=== PATIENT | female | born 1990 ===

== ENCOUNTER 2017-10-12 22:43 | Emergency (ER) | payer OTHER ==
[2017-10-12 22:52] VITALS: BMI 21.5
[2017-10-12 23:06] VITALS: O2SAT 98
[2017-10-13] LABS: BASO # 0.02 K/mm3 (0.0-2.0); BASO % 0.3 % (0.0-3.0); EOS # 0.1 (0.0-0.7); EOS % 1.1 % (1.5-5.0); GRAN # 3.99 (1.4-6.5); LYMPH # 2.8 (1.2-3.4); LYMPH % 38.1 % (22.0-35.0); MEAN CELL VOLUME 88.2 fl (80.0-105.0); MEAN CORPUSCULAR HGB CONC 32.9 g/dl (31.0-37.0); MEAN PLATELET VOLUME 9.7 fl (7.0-11.0); MONO # 0.5 (0.1-0.6); MONO % 6.5 % (1.0-6.0); RBC 4.14 10^6/uL (3.5-6.1); RED CELL DISTRIBUTION WIDTH 14.3 % (11.5-14.5); WHITE BLOOD COUNT 7.4 10^3/ul (4.5-11.0)
--- NOTE | 2017-10-13 | ED PDOC ---
Arrival/HPI <Emil Abebe - Last Filed: 10/13/17 00:30> - General Historian: Patient <Smiley Duong PA-C - Last Filed: 10/13/17 16:29> - General Chief Complaint: Upper Extremity Problem/Injury Time Seen by Provider: 10/12/17 23:29 - History of Present Illness Narrative History of Present Illness (Text): 10/12/17 23:56 27 yo F with no PMH, presents with gradual onset of constant non-radiating R upper chest pain. States that the pain was initially in the R posterior neck and then spread to the R upper chest. Patient does admit to recent travel to [place] this month. Patient denies any trauma or injury shortness of breath, fever , cough, nausea, vomiting, leg pain or swelling, OCP use, paresthesia, weakness , headache, dizziness. PMD Bruno (Smiley Duong PA-C) Past Medical History - Provider Review Nursing Documentation Reviewed: Yes - Travel History Have you recently traveled outside [place] w/in the past 3 mons?: Yes If Yes, travel location?: [place] - Past History Past History: No Previous - Cardiac Hx Cardiac Disorders: No - Pulmonary Hx Respiratory Disorders: No - Neurological Hx Neurological Disorder: No - HEENT Hx HEENT Disorder: No - Renal Hx Renal Disorder: No - Endocrine/Metabolic Hx Hypothyroidism: Yes - Hematological/Oncological Hx Blood Disorders: No - Integumentary Hx Dermatological Disorder: No - Musculoskeletal/Rheumatological Hx Musculoskeletal Disorders: No - Gastrointestinal Hx Gastrointestinal Disorders: No - Genitourinary/Gynecological Hx Genitourinary Disorders: No - Psychiatric Hx Psychophysiologic Disorder: No Hx Substance Use: No - Surgical History Hx Thyroidectomy: Yes (partial [id number]) Other/Comment: breast implants 2015 - Anesthesia Hx Anesthesia: Yes Hx Anesthesia Reactions: No Hx Malignant Hyperthermia: No <Smiley Duong PA-C - Last Filed: 10/13/17 16:29> Family/Social History - Physician Review Nursing Documentation Reviewed: Yes Family/Social History: Diabetes, CAD/ID Smoking Status: Never Smoked Hx Alcohol Use: No Hx Substance Use: No <Smiley Duong PA-C - Last Filed: 10/13/17 16:29> Allergies/Home Meds <Mis,Emil - Last Filed: 10/13/17 00:30> <Smiley Duong PA-C - Last Filed: 10/13/17 16:29> Allergies/Adverse Reactions: Allergies No Known Allergies Allergy (Verified 10/12/17 22:52) Review of Systems - Review of Systems Constitutional: absent: Fatigue, Weight Change, Fevers Respiratory: absent: SOB, Cough, Sputum Cardiovascular: Chest Pain. absent: Palpitations, Edema Gastrointestinal: absent: Abdominal Pain, Diarrhea, Vomiting Genitourinary Female: absent: Dysuria, Frequency, Hematuria Musculoskeletal: absent: Arthralgias, Back Pain, Neck Pain Skin: absent: Rash, Pruritis, Skin Lesions <Smiley Duong PA-C - Last Filed: 10/13/17 16:29> Physical Exam <Emil Abebe - Last Filed: 10/13/17 00:30> <Smiley Duong PA-C - Last Filed: 10/13/17 16:29> - Physical Exam Narrative Physical Exam (Text): 10/12/17 23:59 GENERAL APPEARANCE: Patient is awake, alert, oriented x 3, in no acute distress. SKIN: Warm, dry; (-) cyanosis. EYES: (-) conjunctival pallor. ENMT: Mucous membranes moist. NECK: (-) tenderness, (-) stiffness, (-) lymphadenopathy, (-) JVD. CHEST AND RESPIRATORY: (-) rash, (-) chest wall tenderness. Lungs: (-) rales , (-) rhonchi, (-) wheezes, (-) rub; breath sounds equal bilaterally. HEART AND CARDIOVASCULAR: (-) irregularity; (-) murmur, (-) gallop, (-) rub. ABDOMEN AND GI: Soft; (-) distention, (-) tenderness, (-) palpable pulsatile mass. EXTREMITIES: (-) deformity; (-) edema, (-) calf tenderness. (+) distal pulses. NEURO AND PSYCH: Mental status as above. Cranial nerves grossly intact; strength symmetric. (Smiley Duong PA-C) Vital Signs Temp Pulse Resp BP Pulse Ox 10/13/17 02:21 98.0 F 84 17 134/84 98 10/13/17 01:49 84 17 134/82 98 10/12/17 22:59 98.2 F 82 16 146/93 H 98 Medical Decision Making <Emil Abebe - Last Filed: 10/13/17 00:30> <Smiley Duong PA-C - Last Filed: 10/13/17 16:29> ED Course and Treatment: 10/12/17 23:59 27 yo F with no PMH, presents with sudden onset of constant non-radiating R upper chest pain. Plan: -- Labs -- IV -- Uhcg -- EKG -- CXR -- Reassess and disposition EKG : NSR at 70 bpm, (-) acute ST changes, as read by BRIAN. CXR : NAD, as read by BRIAN Labs reviewed and are wnl. D-dimer (-). Results d/w the patient. Given toradol 30 mg IV for pain. On re-evaluation, patient is resting comfortably in no acute respiratory or painful distress. Speaking in full sentences. Reports no SOB, CP, headache, dizziness at this time. Patient feels comfortable going home. Advised to f/u w/ pmd in 2 days without fail, return to the ER at any time for any new or worsening symptoms. (Ad MAGALLON,Smiley Gaitan) - Lab Interpretations Lab Results: 10/12/17 23:40 10/12/17 23:40 Lab Results 10/12/17 23:40: Sodium 139, Potassium 3.9, Chloride 103, Carbon Dioxide 26, Anion Gap 14, BUN 13, Creatinine 0.6 L, Est GFR ( Amer) > 60, Est GFR ( Non-Af Amer) > 60, Random Glucose 83, Calcium 9.1, Total Bilirubin 0.4, AST 39 H , ALT 21, Alkaline Phosphatase 66, Total Protein 8.0, Albumin 4.1, Globulin 3.9 , Albumin/Globulin Ratio 1.0 L 10/12/17 23:40: PT 13.0 H, INR 1.19 H, APTT 32.1, D-Dimer, Quantitative < 200 10/12/17 23:40: WBC 7.4, RBC 4.14, Hgb 12.0, Hct 36.5, MCV 88.2, MCH 29.0, MCHC 32.9, RDW 14.3, Plt Count 269, MPV 9.7, Gran % 54.0, Lymph % (Auto) 38.1 H, [place] % (Auto) 6.5 H, Eos % (Auto) 1.1 L, Baso % (Auto) 0.3, Gran # 3.99, Lymph # 2.8, [place] # 0.5, Eos # 0.1, Baso # 0.02 - RAD Interpretation Radiology Orders: 10/12/17 23:48 CHEST TWO VIEWS (PA/LAT) [RAD] Stat - Medication Orders Current Medication Orders: Discontinued Medications Ketorolac Tromethamine (Toradol) 30 mg IVP STAT STA Stop: 10/13/17 01:55 Last Admin: 10/13/17 02:20 Dose: 30 mg MAR Pain Assessment Document 10/13/17 02:20 IT (Rec: 10/13/17 02:20 IT [id number]) Pain Reassessment Is this a pain reassessment? No Sleep Is patient sleeping during reassessment? No Presence of Pain Presence of Pain Yes Pain Scale Used Pain Scale Used Numeric IVP Administration Document 10/13/17 02:20 IT (Rec: 10/13/17 02:20 IT [id number]) Charges for Administration # of IVP Administrations 1 - PA / BELT CLEANER / Resident Statement ASTON has reviewed & agrees with the documentation as recorded. <Emil Abebe - Last Filed: 10/13/17 00:30> - PA / BELT CLEANER / Resident Statement ASTON has reviewed & agrees with the documentation as recorded. <Smiley Duong PA-C - Last Filed: 10/13/17 16:29> Disposition/Present on Arrival <Emil Abebe - Last Filed: 10/13/17 00:30> - Present on Arrival Any Indicators Present on Arrival: No History of DVT/PE: No History of Uncontrolled Diabetes: No Urinary Catheter: No History of Decub. Ulcer: No History Surgical Site Infection Following: None - Disposition Have Diagnosis and Disposition been Completed?: Yes Disposition Time: 01:45 Patient Plan: Discharge <Smiley Duong PA-C - Last Filed: 10/13/17 16:29> - Disposition Diagnosis: Chest pain Disposition: HOME/ ROUTINE Condition: STABLE Discharge Instructions (ExitCare): Chest Pain (ED) Print Language: URDU Additional Instructions: Thank you for letting us take care of you today. You were treated for chest pain. The emergency medical care you received today was directed at your acute symptoms. If you were prescribed any medication, please fill it and take as directed. It may take several days for your symptoms to resolve. Return to the Emergency Department if your symptoms worsen, do not improve, or if you have any other problems. Please contact your doctor in 2 days for re-evaluation and follow up. Bring any paperwork you were given at discharge with you along with any medications you are taking to your follow up visit. Our treatment cannot replace ongoing medical care by a primary care provider (PCP) outside of the emergency department. Thank you for allowing the [facility] team to be part of your care today. Prescriptions: Meloxicam [Mobic] 15 mg PO DAILY #20 tab Referrals: Mirela Carr MD [Primary Care Provider] - Follow up with primary Forms: [employer] (Chilean)
[2017-10-13 00:09] LABS: ALBUMIN 4.1 g/dL (3.0-4.8); ALT/SGPT 21 U/L (7-56); AST/SGOT 39 U/L (14-36); BLOOD UREA NITROGEN 13 mg/dL (7-21); CALCIUM 9.1 mg/dL (8.4-10.5); GFR AFRICAN-AMERICAN > 60; GFR NON-AFRICAN AMERICAN > 60
[2017-10-13 00:28] LABS: INR 1.19 (0.93-1.08); PARTIAL THROMBOPLASTIN TIME 32.1 Seconds (25.1-36.5)
[2017-10-13 01:46] LABS: D DIMER < 200 ng/mL (0-243)
[2017-10-13 01:55] VITALS: PULSE 84; RESP 17
[2017-10-13 02:24] VITALS: BP 134/84; TEMP 98
--- NOTE | 2017-10-13 11:13 | RAD ---
HISTORY: Right upper chest pain. COMPARISON: No prior study available for comparison TECHNIQUE: Chest PA and lateral FINDINGS: LUNGS: Bilateral breast implants reduces fine detail in the lower lung orr. No focal consolidation PLEURA: No significant pleural effusion identified. No pneumothorax apparent. CARDIOVASCULAR: Normal. OSSEOUS STRUCTURES: No significant abnormalities. VISUALIZED UPPER ABDOMEN: Normal. OTHER FINDINGS: None. IMPRESSION: No active disease.
--- NOTE | 2017-10-13 15:36 | CARD ---
APPROVED REPORT EKG Measurement Heart [id number] <Conclusion> Normal sinus rhythm with sinus arrhythmia Possible Left atrial enlargement Borderline ECG
== END 2017-10-13 02:24 | disposition home or self-care (01) ==
LOC: ED 22:43 → MERGE 22:43 → ED 10-13 02:24
DX: R07.9 Chest pain, unspecified (principal)
CPT/HCPCS: 71020; 80053; 85025; 85378; 85610; 85730; 93005; 96374; 99284; J1885